=== PATIENT | female | born 1975 | race Caucasian/White ===

== ENCOUNTER 2020-04-13 17:41 | Emergency (ER) | payer MEDICAID ==
[~2020-04-13] VITALS: Ht 172.7 cm; Wt 51.5 kg
--- NOTE | 2020-04-13 17:47 | NUR ---
NIL X 1
--- NOTE | 2020-04-13 17:55 | NUR ---
[id number] @[id number]
[2020-04-13 17:58] VITALS: BP 146/108
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
[2020-04-13] MEDS ORDERED: IBUPROFEN 600 MG TABLET PO ONE (18:30)
[2020-04-13] MEDS ORDERED: IBUPROFEN 600 MG TABLET ONE (18:35)
--- NOTE | 2020-04-13 18:39 | NUR ---
PT MEDICATED FOR PAIN PER ORDERS.
--- NOTE | 2020-04-13 18:50 | NUR ---
REPORT GIVEN TO KARINE MENCHACA RN.
--- NOTE | 2020-04-13 18:51 | NUR ---
RECEIVED REPORT FROM NICOLE JONES, ASSUMING CARE NOW.
--- NOTE | 2020-04-13 19:25 | NUR ---
DWAIN RN: Patient/Caregiver given discharge instructions and they have confirmed that they understand the instructions. Patient ambulatory with steady gait.
== END 2020-04-13 19:25 | disposition home or self-care (01) ==
LOC: ED 18:52
DX: M25.562 Pain in left knee (principal); F17.200 Nicotine dependence, unspecified, uncomplicated
CPT/HCPCS: 29505; 99283

== ENCOUNTER 2020-12-24 18:43 | Emergency (ER) | payer MEDICAID ==
[~2020-12-24] VITALS: Ht 170.2 cm; Wt 59.1 kg
--- NOTE | 2020-12-24 18:48 | NUR ---
called for triage. pt in bathroom
[2020-12-24 18:53] VITALS: BP 189/88
[2020-12-24 19:43] LABS: BASOPHILS % (AUTO) 1 % (0-1); EOSINOPHILS % (AUTO) 2 % (1-7); LYMPHOCYTES % (AUTO) 31 % (22-44); MEAN CORPUSCULAR HEMOGLOBIN 30.5 pg (27.0-34.8); MEAN CORPUSCULAR HGB CONC 33.7 g/dL (32.4-35.8); MONOCYTES % (AUTO) 9 % (2-9); NEUTROPHILS % (AUTO) 57 % (42-75); PLATELET COUNT 290 x10^3/uL (130-400); RED BLOOD COUNT 4.21 x10^6/uL (3.82-5.3); RED CELL DISTRIBUTION WIDTH 14.9 % (9.6-15.2)
[2020-12-24 19:49] LABS: MD NO
[2020-12-24 19:52] LABS: MICROSCOPIC NOT IND
[2020-12-24 19:57] LABS: ALANINE AMINOTRANSFERASE 64 U/L (12-78); ALBUMIN 3.8 g/dL (3.4-5.0); ANION GAP 4 mmol/L (5-15); CALCIUM 8.5 mg/dL (8.5-10.1); CHLORIDE 108 mmol/L (98-107); CREATININE 0.97 mg/dL (0.55-1.02)
[2020-12-24 20:02] LABS: ALKALINE PHOSPHATASE 92 U/L (45-117); BILIRUBIN,TOTAL 0.5 mg/dL (0.2-1.0); TOTAL PROTEIN 8.3 g/dL (6.4-8.2)
[2020-12-24 20:05] LABS: AMPHETAMINE SCREEN, URINE Positive (Negative); BARBITURATE SCREEN, URINE Negative (Negative); BENZODIAZEPINE SCREEN, URINE Negative (Negative); CANNABINOID SCREEN, URINE Positive (Negative); COCAINE SCREEN, URINE Negative (Negative); METHADONE SCREEN, URINE Negative (Negative); OPIATE SCREEN, URINE Negative (Negative)
== END 2020-12-24 21:34 | disposition home or self-care (01) ==
LOC: ED 20:27
DX: R10.84 Generalized abdominal pain (principal); R30.0 Dysuria; F17.210 Nicotine dependence, cigarettes, uncomplicated
CPT/HCPCS: 36415; 80053; 80307; 81003; 83690; 84703; 85025; 99283; 99406

== ENCOUNTER 2021-06-03 08:00 | Emergency (ER) | payer MEDICAID ==
[~2021-06-03] VITALS: Ht 170.2 cm; Wt 58.0 kg
--- NOTE | 2021-06-03 08:16 | NUR ---
ROUTE DELIVERY MANAGER: PT SMOKING OUTSIDE WHEN CALLED
[2021-06-03 08:20] VITALS: BP 118/79
--- NOTE | 2021-06-03 08:43 | NUR ---
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
--- NOTE | 2021-06-03 08:57 | NUR ---
REPORT TO KAREN CASTRO FOR TRANSFER OF PATIENT CARE.
--- NOTE | 2021-06-03 09:21 | NUR ---
ER LINO HERNANDEZ AT BEDSIDE FOR EVAL
[2021-06-03] MEDS ORDERED: KETOROLAC 30 MG/1 ML IM ONE (09:30)
[2021-06-03] MEDS ORDERED: KETOROLAC 30 MG/1 ML ONE (09:39)
--- NOTE | 2021-06-03 11:05 | NUR ---
dc instructions reviewed
== END 2021-06-03 11:16 | disposition home or self-care (01) ==
LOC: ED 10:41
DX: M25.462 Effusion, left knee (principal); M25.562 Pain in left knee; F17.210 Nicotine dependence, cigarettes, uncomplicated
CPT/HCPCS: 73564; 96372; 99283; 99406; J1885

== ENCOUNTER 2021-06-30 16:46 | Emergency (ER) | payer MEDICAID ==
[~2021-06-30] VITALS: Ht 172.7 cm; Wt 54.5 kg
[2021-06-30 17:17] VITALS: BP 147/100
== END 2021-06-30 20:21 ==
LOC: ED 19:20
DX: S50.862A Insect bite (nonvenomous) of left forearm, initial encounter (principal); S50.861A Insect bite (nonvenomous) of right forearm, initial encounter; S70.362A Insect bite (nonvenomous), left thigh, initial encounter; W57.XXXA Bitten or stung by nonvenomous insect and other nonvenomous arthropods, initial encounter; Y93.89 Activity, other specified; Y92.009 Unspecified place in unspecified non-institutional (private) residence as the place of occurrence of the external cause; Y99.8 Other external cause status
CPT/HCPCS: 99283